=== PATIENT | female | born 1960 | race Caucasian/White ===

== ENCOUNTER 2016-09-23 10:50 | Emergency (ER) | payer OTHER ==
[~2016-09-23] VITALS: Ht 152.4 cm; Wt 60.0 kg
[~2016-09-23 10:50] MED LIST: ATOR10TA65 PO; BENA20TA48 PO; GLIM4TAB PO; METF-480 PO; SITA100T8 PO
[2016-09-23 11:00] VITALS: Ht 152.4 cm; Wt 60.0 kg
[2016-09-23] MEDS ORDERED: BENA40TA41 PO (11:26)
[2016-09-23 11:33] VITALS: BP 140/82; PULSE 99; RESP 19
[2016-09-23 11:45] LABS: ADD UMIC NO; URINE BILIRUBIN (Dip) NEGATIVE (NEGATIVE); URINE BLOOD (Dip) NEGATIVE (NEGATIVE); URINE COLOR LT. YELLOW (YELLOW); URINE GLUCOSE (Dip) >=1000 % (NEGATIVE); URINE KETONES (Dip) NEGATIVE (NEGATIVE); URINE LEUKOCYTE ESTERASE (Dip) NEGATIVE (NEGATIVE); URINE NITRITE (Dip) NEGATIVE (NEGATIVE); URINE TOTAL PROTEIN (Dip) NEGATIVE (NEGATIVE); URINE UROBILINOGEN (Dip) 0.2 E.U./dL (0.1-1.0)
[2016-09-23 11:54] LABS: ALBUMIN 4.8 g/dl (3.3-4.9); POTASSIUM 4.1 mmol/L (3.5-5.1)
[2016-09-23 11:56] LABS: CREATININE 0.7 mg/dl (0.44-1.00)
[2016-09-23 11:57] LABS: ALBUMIN/GLOBULIN RATIO 1.2; BASOPHILS % 0.5 % (0.0-2.0); BILIRUBIN,INDIRECT 0.2 mg/dl (0-1.1); BILIRUBIN,TOTAL 0.2 mg/dl (0.2-1.3); EOSINOPHILS # 0.1 10^3/ul (0.0-0.5); EOSINOPHILS % 1.5 % (0.0-7.0); HEMATOCRIT 38.8 % (37.0-47.0); HEMOGLOBIN 13.3 g/dl (12.0-16.0); LYMPHOCYTES # 2.2 10^3/ul (0.8-2.9); LYMPHOCYTES % 29.1 % (15.0-51.0); MEAN CORPUSCULAR HEMOGLOBIN 29.5 pg (29.0-33.0); MEAN CORPUSCULAR HGB CONC 34.2 g/dl (32.0-37.0); MEAN CORPUSCULAR VOLUME 86.3 fl (82.0-101.0); MEAN PLATELET VOLUME 9.6 fl (7.4-10.4); MONOCYTE # 0.5 10^3/ul (0.3-0.9); MONOCYTES % 7.1 % (0.0-11.0); NEUTROPHIL # 4.7 10^3/ul (1.6-7.5); NEUTROPHILS % 61.8 % (39.0-77.0); PLATELET COUNT 286 10^3/UL (140-440); RED CELL DISTRIBUTION WIDTH 12.4 % (11.5-14.5); TOTAL PROTEIN 8.8 g/dl (6.1-8.1); UNCORRECTED WBC 7.6 10^3/ul (4.8-10.8); WHITE BLOOD COUNT 7.6 10^3/ul (4.8-10.8)
[2016-09-23 11:59] LABS: CONDITION 1
--- NOTE | 2016-09-23 12:39 | RADRPT ---
PROCEDURE: CT abdomen and pelvis without contrast. CLINICAL INDICATION: Abdominal pain, right upper quadrant pain TECHNIQUE: CT scan of the abdomen and pelvis without contrast was performed. The patient was scan stacy without intravenous contrast. 3-D coronal reformatted images were obtained from the axial [facility] e images. The calculated radiation dose measures 498 mGy centimeters. The CTDI measures 9 mGy COMPARISON: None. FINDINGS: CT abdomen: Limited images through the lung bases appear clear. The liver is normal in size and density, without intrahepatic biliary dilatation. The spleen and p ancreas are unremarkable noncontrast appearance. The gallbladder is surgically absent.. The adrenal glands are symmetric and normal. The kidneys appear normal in size and contour. No renal calculus or hydronephrosis is visualized. There is no ascites or retroperitoneal lymphadenopathy. There is mild to moderate aortic and branch vessel calcification. Visualized bowel loops appear within normal limits. The appendix appears normal. CT pelvis: The urinary bladder appears normal. The uterus is surgically absent.. There is no abnormal pelvic mass or adenopathy. There is no pelvic free fluid. Visualized osseous structures appear unremarkable. IMPRESSION: 1. Status post cholecystectomy and hysterectomy. Mild to moderate aortic and branch vessel calcific ation. 2. Otherwise unremarkable noncontrast examination. The appendix is seen and appears within normal limits. No renal calculi or hydronephrosis. RPTAT: GG .Marbin Rosas MD, MD Date Time Electronically viewed and signed by .Marbin Rosas MD, MD on 09/23/2016 12:38 .T/
[2016-09-23] MEDS ORDERED: IBUP-1542 PO (13:11)
--- NOTE | 2016-09-23 13:15 | ERD ---
ER Documentation Chief Complaint Date/Time DATE: 09/23/16 TIME: 13:12 Chief Complaint RLQ PAIN RADIATES TO THE BACK X 3 DAYS HPI 56-year-old female presents the emergency department complaining of right upper quadrant abdominal pain. Patient states that she is began having spontaneous, acute onset right upper quadrant abdominal pain that has lasted over the last 3 days. Patient's pain is consistent and is not getting any worse. She denies any fevers chills or urinary symptoms. She denies any hematuria. Patient denies any shortness of breath cough or hemoptysis associated with this. Patient has had previous gallstones with a cholecystectomy, but this does not feel the same. She reports no rash or other complaints. ROS All systems reviewed and are negative except as per history of present illness. Medications Home Meds Active Scripts Ibuprofen* (Ibuprofen*) 600 Mg Tablet, 600 MG PO Q6 Y for PAIN, #30 TAB Prov:DAIA SHAIKH 09/23/16 Reported Medications Benazepril Hcl* (Benazepril Hcl*) 40 Mg Tablet, 40 MG PO DAILY, #30 TAB 09/23/16 Atorvastatin Calcium (Atorvastatin Calcium) 10 Mg Tab, 10 MG PO HS, TAB 07/23/14 Glimepiride* (Glimepiride*) 4 Mg Tablet, 6 MG PO DAILY, TAB 07/23/14 Metformin* (Glucophage*) 850 Mg Tablet, 850 MG PO BID, TAB 07/23/14 Sitagliptin* (Januvia*) 100 Mg Tablet, 100 MG PO DAILY, TAB 07/23/14 Discontinued Reported Medications Benazepril Hcl* (Benazepril Hcl*) 20 Mg Tablet, 20 MG PO DAILY, TAB 07/23/14 Allergies Allergies: Coded Allergies: amoxicillin (Verified Allergy, Unknown, 09/23/16) PMhx/Soc History of Surgery: Yes (cholecystectomy, c/section x2) Anesthesia Reaction: No Hx Neurological Disorder: No Hx Respiratory Disorders: No Hx Cardiac Disorders: Yes (htn) Hx Psychiatric Problems: No Hx Miscellaneous Medical Probl: Yes (sciatica, DM) Hx Alcohol Use: No Hx Substance Use: No Hx Tobacco Use: No Smoking Status: Never smoker FmHx Noncontributory for chief complaint Physical Exam Vitals Vital Signs Date Time Temp Pulse Resp B/P Pulse Ox O2 Delivery O2 Flow Rate FiO2 09/23/16 11:33 99 19 140/82 99 Room Air 09/23/16 11:00 98.4 106 25 130/76 99 Physical Exam GENERAL: The patient is well developed and appropriate for usual state of health in no apparent distress HEENT: Pupils equal, round, and reactive to light. EOMI. There is no scleral icterus. NECK: C-spine is soft and supple, there is no meningismus. There is no cervical lymphadenopathy. LUNGS: Clear to auscultation bilaterally. There are no rales, wheezes or rhonchi. HEART: Regular rate and rhythm, no murmurs, clicks, rubs or gallops. ABDOMEN: Soft, non-tender, non-distended. There are bowel sounds in all four quadrants. No rebound or guarding. EXTREMITIES: There is no peripheral cyanosis or edema. No focal swelling or erythema. NEURO: The patient moves all four extremities with 5/5 strength. Cranial nerves II - XII are intact. Normal gait. Alert and oriented SKIN: There is no apparent rash or petechiae. HEME/LYMPHATIC: There is no evidence of excessive bruising or lymphedema. PSYCHIATRIC: The patient does not appear anxious or depressed. Result Diagram: 09/23/16 1130 09/23/16 1130 Results 24 hrs Laboratory Tests Test 09/23/16 11:20 09/23/16 11:30 Urine Bilirubin NEGATIVE Urine Clarity CLEAR Urine Color LT. YELLOW Urine Glucose >=1000% Urine Hemoglobin NEGATIVE Urine Ketones NEGATIVE Urine Leukocyte Esterase NEGATIVE Urine Nitrite NEGATIVE Urine Specific [place] 1.015 Urine Total Protein NEGATIVE Urine Urobilinogen 0.2 E.U./dL Urine pH 5.5 Alanine Aminotransferase (ALT/SGPT) 86IU/L Albumin 4.8g/dl Albumin/Globulin Ratio 1.20 Alkaline Phosphatase 199IU/L Anion Gap 21 Aspartate Amino Transf (AST/SGOT) 39IU/L Basophils # 0.010^3/ul Basophils % 0.5% Blood Urea Nitrogen 15mg/dl Calcium Level 10.0mg/dl Carbon Dioxide Level 25mmol/L Chloride Level 100mmol/L Creatinine 0.70mg/dl Direct Bilirubin 0.00mg/dl Eosinophils # 0.110^3/ul Eosinophils % 1.5% Globulin 4.00g/dl Glucose Level 269mg/dl Hematocrit 38.8% Hemoglobin 13.3g/dl Indirect Bilirubin 0.2mg/dl Lipase 119U/L Lymphocytes # 2.210^3/ul Lymphocytes % 29.1% Mean Corpuscular Hemoglobin 29.5pg Mean Corpuscular Hemoglobin Concent 34.2g/dl Mean Corpuscular Volume 86.3fl Mean Platelet Volume 9.6fl Monocytes # 0.510^3/ul Monocytes % 7.1% Neutrophils # 4.710^3/ul Neutrophils % 61.8% Nucleated Red Blood Cells # 0.010^3/ul Nucleated Red Blood Cells % 0.0/100WBC Platelet Count 17131^3/UL Potassium Level 4.1mmol/L Red Blood Count 4.5010^6/ul Red Cell Distribution Width 12.4% Sodium Level 142mmol/L Total Bilirubin 0.2mg/dl Total Protein 8.8g/dl White Blood Count 7.610^3/ul Procedures/MDM Patient was taken to a room, seen and evaluated. Comfort measures were initiated. Diagnostic tests were ordered and reviewed. 3 LEAD RHYTHM STRIP: Normal sinus rhythm without ectopy RADIOLOGY: reviewed with the radiologist REEVALUATION: Serial examinations of the patient's abdomen remained benign MEDICAL DECISION MAKING: Patient presents with abdominal pain of uncertain etiology. Differential diagnosis considered includes appendicitis, diverticulitis, cholecystitis and other intra-abdominal medical and surgical concerns. I have reviewed the patients lab studies and imaging as well as multiple examinations of the abdomen. At this time, patient shows no evidence of residual liver disease, high risk infection, electrolyte concerns. Patient's pain is adequately controlled and she now appears to be appropriate for outpatient care. Departure Diagnosis: Primary Impression: Abdominal pain Condition: Stable Patient Instructions: Abdominal Pain Additional Instructions: See your doctor for follow-up as discussed. Take a copy of your test results, if appropriate, to this follow-up visit. See your doctor or return here if your symptoms do not improve as expected. At any time, please return to the emergency department for any change or worsening in her symptoms. ADIA SHAIKH Sep 23, 2016 13:14
== END 2016-09-23 12:53 | disposition home or self-care (01) ==
LOC: E/R 10:50
DX: R10.11 Right upper quadrant pain (principal); I10 Essential (primary) hypertension; E11.9 Type 2 diabetes mellitus without complications; Z79.84 Long term (current) use of oral hypoglycemic drugs
CPT/HCPCS: 36415; 74176; 80053; 81003; 83690; 85025; Z7502

== ENCOUNTER 2018-09-19 11:15 | Emergency (ER) | payer OTHER ==
[~2018-09-19] VITALS: Ht 165.1 cm; Wt 58.3 kg
[~2018-09-19 11:15] MED LIST changes: -BENA20TA48 PO; +BENA40TA56 PO; +IBUP-1542 PO; +SITA100T11 PO; -SITA100T8 PO
[2018-09-19 11:29] VITALS: Ht 165.1 cm; Wt 58.3 kg
[2018-09-19] MEDS ORDERED: GABA300C PO (12:06)
--- NOTE | 2018-09-19 12:09 | ERD ---
ER Documentation Chief Complaint Chief Complaint Complains of elevated BP hx of Diabetes HPI 58-year-old female presents to the emergency department saying that her high blood pressure and her diabetes are out of control because she has chronic back pain and needs her [place]. Patient states she ran out of her [place] recently and continues to have low back pain. She states it is in her lower back and radiates to both legs and is associated with no fevers or chills, numbness or tingling, bowel or bladder incontinence. This is a chronic issue that she has had for some time now. She reports no acute trauma or change in her pain. In regards to her high blood pressure she reports that she is taking her medications and she reports no chest pain or shortness of breath. She reports no headache or focal weakness associated with the blood pressure. Similarly, she is taking her diabetes medications and reports no polyuria or polydipsia. ROS All systems reviewed and are negative except as per history of present illness. Medications Home Meds Active Scripts Gabapentin* (Neurontin*) 300 Mg Capsule, 300 MG PO QHS, #60 CAP Prov:ADIA SHAIKH 09/19/18 Ibuprofen* (Ibuprofen*) 600 Mg Tablet, 600 MG PO Q6 PRN for PAIN, #30 TAB Prov:ADIA SHAIKH 09/23/16 Reported Medications Benazepril Hcl* (Benazepril Hcl*) 40 Mg Tablet, 40 MG PO DAILY, #30 TAB 09/23/16 Atorvastatin Calcium (Atorvastatin Calcium) 10 Mg Tab, 10 MG PO HS, TAB 07/23/14 Glimepiride* (Glimepiride*) 4 Mg Tablet, 6 MG PO DAILY, TAB 07/23/14 Metformin* (Glucophage*) 850 Mg Tablet, 850 MG PO BID, TAB 07/23/14 Sitagliptin* (Januvia*) 100 Mg Tablet, 100 MG PO DAILY, TAB 07/23/14 Allergies Allergies: Coded Allergies: amoxicillin (Verified Allergy, Unknown, 09/23/16) PMhx/Soc History of Surgery: Yes (cholecystectomy, c/section x2) Anesthesia Reaction: No Hx Neurological Disorder: No Hx Respiratory Disorders: No Hx Cardiac Disorders: Yes (htn) Hx Psychiatric Problems: No Hx Miscellaneous Medical Probl: Yes (sciatica, DM) Hx Alcohol Use: No Hx Substance Use: No Hx Tobacco Use: No FmHx Noncontributory for chief complaint Physical Exam Vitals Vital Signs Date Temp Pulse Resp B/P (MAP) Pulse Ox O2 O2 Flow FiO2 Time Delivery Rate 09/19/18 98.1 78 20 168/84 100 11:29 (112) Physical Exam GENERAL: The patient is well developed and appropriate for usual state of health in no apparent distress HEENT: Pupils equal, round, and reactive to light. EOMI. There is no scleral icterus. NECK: C-spine is soft and supple, there is no meningismus. There is no cervical lymphadenopathy. LUNGS: Clear to auscultation bilaterally. There are no rales, wheezes or rhonchi. HEART: Regular rate and rhythm, no murmurs, clicks, rubs or gallops. ABDOMEN: Soft, non-tender, non-distended. There are bowel sounds in all four quadrants. No rebound or guarding. EXTREMITIES: There is no peripheral cyanosis or edema. No focal swelling or erythema. NEURO: The patient moves all four extremities with 5/5 strength. Cranial nerves II - XII are intact. Normal gait. Alert and oriented SKIN: There is no apparent rash or petechiae. HEME/LYMPHATIC: There is no evidence of excessive bruising or lymphedema. PSYCHIATRIC: The patient does not appear anxious or depressed. Procedures/MDM Patient was taken to a room, seen and examined Medical decision m[age]-year-old female presents the emergency department with a chronically elevated blood pressure and chronically elevated blood sugar. Patient shows no evidence on exam or by history of acute endorgan dysfunction related to either her blood pressure or her diabetes. On review of her cures database, she has chronic narcotics prescribed and I do not feel comfortable refilling these. Patient has been reassured and referred for outpatient supportive care. Departure Diagnosis: Primary Impression: Hypertension Additional Impression: Back pain Condition: Stable Patient Instructions: High Blood Pressure (Hypertension), Back Pain (Acute Or Chronic) Referrals: [facility] (PCP) Additional Instructions: Please see your doctor for a recheck this week. ADIA SHAIKH Sep 19, 2018 12:09
[2018-09-19 12:30] VITALS: BP 152/75; PULSE 68; RESP 16
== END 2018-09-19 12:30 | disposition home or self-care (01) ==
LOC: E/R 11:15
DX: I10 Essential (primary) hypertension (principal); E11.9 Type 2 diabetes mellitus without complications; Z79.84 Long term (current) use of oral hypoglycemic drugs
CPT/HCPCS: Z7502; Z7610; 99283

== ENCOUNTER 2018-12-15 13:43 | Emergency (ER) | payer SELFPAY ==
[~2018-12-15] VITALS: Ht 165.1 cm; Wt 56.7 kg
[~2018-12-15 13:43] MED LIST changes: +GABA300C PO
[2018-12-15 13:51] VITALS: BP 137/65; RESP 18; Ht 165.1 cm; Wt 56.7 kg
== END 2018-12-15 19:05 | disposition left against medical advice (07) ==
LOC: E/R 13:43
DX: Z53.21 Procedure and treatment not carried out due to patient leaving prior to being seen by health care provider (principal)
CPT/HCPCS: 82962